=== PATIENT | male | born 1940 | race Two or more races ===

== ENCOUNTER 2017-02-04 12:51 | Outpatient (CLI) | payer MEDICARE, OTHER ==
[~2017-02-04] VITALS: Ht 162.6 cm; Wt 62.6 kg
[2017-02-04 13:08] VITALS: BP 136/78
[2017-02-04] MEDS ORDERED: CRESTOR10 M2 ORAL (13:38)
[2017-02-04] MEDS ORDERED: DIOVAN80 MG ORAL (13:38)
[2017-02-04] MEDS ORDERED: NORVASC5 MG ORAL (13:38)
--- NOTE | 2017-02-04 13:40 | GI Initial Consult Note ---
NancyHiwot Tonyoi N.PCarlos 02/04/17 1340: History of Present Illness General Date patient seen: Feb 04, 2017 Time patient seen: 13:36 Referring physician: JOSE Reason for Consultation: COLONOSCOPY SCREENING Present Illness HPI 76 year old male referred by Dr. Ch for routine colonoscopy screning. Last colonoscopy was performed in 2008. He presents today with c/o of GERD, constipation and abdominal bloating with some associated belching. Denies any changes in dietary habits. No noted significant weight loss. Home Meds Reported Medications Rosuvastatin Calcium* (CRESTOR*) Unknown Strength Tablet, ORAL DAILY, TAB 02/04/17 Amlodipine Besylate (Norvasc) 5 Mg Tablet, 5 MG ORAL DAILY, TAB 02/04/17 Valsartan (DIOVAN) 80 Mg Tab, 80 MG ORAL, TAB 02/04/17 Med list reviewed/reconciled: Yes Allergies: Coded Allergies: No Known Allergies (Unverified , 02/04/17) Patient History History Provided By: Patient PMH Narrative HTN Cholesterol Lt. Cataracts Denies PSHx Social History: Reports: other - tea Review of Systems All Other Systems: negative except mentioned in HPI Physical Exam Vital Signs Date Time Temp Pulse Resp B/P Pulse Ox O2 Delivery O2 Flow Rate FiO2 02/04/17 13:08 97.9 52 16 136/78 100 Sp02 EP Interpretation: reviewed General Appearance: well appearing, no apparent distress, alert Head: normocephalic EENT: PERRL/EOMI, normal ENT inspection Neck: supple Respiratory: normal breath sounds, no respiratory distress Cardiovascular: normal rate, regular rhythm Gastrointestinal: normal inspection, non tender, soft Rectal: deferred Neurologic: normal inspection, alert, oriented x3, responsive Psychiatric: normal inspection, judgement/insight normal, memory normal Skin: normal inspection, normal color, no rash, warm/dry Lymphatic: normal inspection, no adenopathy GI: Plan Problems: (1) HTN (hypertension) (2) Elevated cholesterol (3) Cataract (4) Colonoscopy planned (5) GERD (gastroesophageal reflux disease) (6) Constipation (7) Bloating symptom Plan EGD/colonoscopy scheduled for 02/10/17. - CLD & prep instructions given and acknowledged by patient. Seen with Dr. Knox. Thank you for referring this patient. ERICA KNOX 02/04/17 1655: History of Present Illness Present Illness Home Meds Reported Medications Rosuvastatin Calcium* (CRESTOR*) Unknown Strength Tablet, ORAL DAILY, TAB 02/04/17 Amlodipine Besylate (Norvasc) 5 Mg Tablet, 5 MG ORAL DAILY, TAB 02/04/17 Valsartan (DIOVAN) 80 Mg Tab, 80 MG ORAL, TAB 02/04/17 Allergies: Coded Allergies: No Known Allergies (Unverified , 02/04/17) GI: Plan Plan The patient was seen and examined at bedside and all new and available data was reviewed in the patients chart. I agree with the above findings, impression and plan. (Patient seen earlier today. Signature stamp does not reflect patient encounter time.). -Hiwot Martin MD, N.P. Feb 04, 2017 13:40 ERICA KNOX Feb 04, 2017 16:55
== END 2017-02-04 13:40 | disposition home or self-care (01) ==
LOC: PAN 12:51
DX: E78.00 Pure hypercholesterolemia, unspecified (principal); I10 Essential (primary) hypertension; K21.9 Gastro-esophageal reflux disease without esophagitis; K59.00 Constipation, unspecified; H26.9 Unspecified cataract
CPT/HCPCS: 99201

== ENCOUNTER 2017-02-10 06:13 | Day surgery (SDC) | payer MEDICARE, OTHER ==
[~2017-02-10] VITALS: Ht 160 cm; Wt 59.9 kg
[2017-02-10] VITALS (8 sets, daily range): BP systolic 136–160; BP diastolic 81–103
--- NOTE | 2017-02-10 06:07 | Anethesia Preoperative Eval ---
Anesthesia Pre-op PMH/ROS General Date of Evaluation: Feb 10, 2017 Time of Evaluation: 06:05 Anesthesiologist: jania ASA Score: ASA 2 Mallampati Score Class I : Soft palate, uvula, fauces, pillars visible Class II: Soft palate, uvula, fauces visible Class III: Soft palate, base of uvula visible Class IV: Only hard plate visible Mallampati Classification: Class II Surgeon: laura Diagnosis: gerd, colon screening Surgical Procedure: egd/colonoscopy Anesthesia History: none Social History: smoking - nonsmoker Family History: no anesthesia problems Allergies: Coded Allergies: No Known Allergies (Unverified , 02/04/17) Medications: see eMAR Past Medical History Cardiovascular: Reports: HTN Gastrointestinal/Genitourinary: Reports: GERD Neurologic/Psychiatric: Reports: depression/anxiety Anesthesia Pre-op Phys. Exam Physician Exam Last Vital Signs Date Time Temp Pulse Resp B/P Pulse Ox O2 Delivery O2 Flow Rate FiO2 02/10/17 07:40 98.6 47 18 153/92 99 Room Air Constitutional: NAD Neurologic: CN 2-12 intact Cardiovascular: RRR Respiratory: CTA Gastrointestinal: S/NT/ND Airway Exam Mallampati Score: Class II MO: full Neck: supple TMD: 2fb ROM: full Teeth: intact Anesthesia Pre-op A/P Risk Assessment & Plan Assessment: asa2 Plan: mac Status Change Before Surgery: No Pre-Antibiotics Drug: LUPE Umana Feb 10, 2017 06:07
[~2017-02-10 06:13] MED LIST: CRESTOR10 M2 ORAL; DIOVAN80 MG ORAL; NORVASC5 MG ORAL
[2017-02-10] MEDS ORDERED: [UNRECOGNIZED DRUG - REMARK] ORAL (07:48)
[2017-02-10] MEDS ORDERED: NEXIUM40 MG ORAL (07:48)
[2017-02-10] MEDS ORDERED: OLANZAPINE5 MG ORAL (07:48)
[2017-02-10] MEDS ORDERED: TRAZODONE HCL150 MG ORAL (07:48)
[2017-02-10] MEDS ORDERED: CRESTOR10 M2 ORAL (07:49)
[2017-02-10] MEDS ORDERED: Propofol 10mg/ml 20ml IV ONE (07:50)
[2017-02-10] MEDS ORDERED: Lidocaine 1% MPF 10mg/ml 5ml ONE (07:50)
--- NOTE | 2017-02-10 08:20 | Pre-Procedure Note/Attestation ---
Pre-Procedure Note/Attestation Complete Prior to Procedure Planned Procedure: not applicable Procedure Narrative: egd/colonoscopy Indications for Procedure Pre-Operative Diagnosis: screening colon, GERD Attestation I attest that I discussed the nature of the procedure; its benefits; risks and complications; and alternatives (and the risks and benefits of such alternatives ), prior to the procedure, with the patient (or the patient's legal customer retention representative). I attest that, if there was a reasonable possibility of needing a blood transfusion, the patient (or the patient's legal customer retention representative) was given the [facility] standardized written summary, pursuant to the Mk Angelina Blood Safety Act ([place] Health and Safety Code # 1645, as amended). I attest that I re-evaluated the patient just prior to the surgery and that there has been no change in the patient's H&P, except as documented below: ERICA KNOX Feb 10, 2017 08:20
--- NOTE | 2017-02-10 08:21 | Short Stay Surgery H&P ---
History of Present Illness History of Present Illness Chief Complaint screening colon, GERD see recent consult note HPI Luke Conti is a 76 year old male who was admitted on for Gerd,Colon Screening Patient History Allergies: Coded Allergies: No Known Allergies (Unverified , 02/04/17) PAST MEDICAL HISTORY: Past Surgeries: Social History: Medication History Scheduled Amlodipine Besylate (Norvasc), 5 MG ORAL DAILY, (Reported) Esomeprazole Magnesium (Nexium), 40 MG ORAL DAILY, (Reported) Olanzapine (Olanzapine), 5 MG ORAL DAILY, (Reported) Rosuvastatin Calcium* (Crestor*), 10 MG ORAL DAILY, (Reported) Trazodone* (Trazodone*), 25 MG ORAL BEDTIME, (Reported) Valsartan (Diovan), 80 MG ORAL BID, (Reported) Miscellaneous Medications [no-spa], 40 MG ORAL, (Reported) Physical Exam Vital Signs Last Vital Signs Date Time Temp Pulse Resp B/P Pulse Ox O2 Delivery O2 Flow Rate FiO2 02/10/17 07:40 98.6 47 18 153/92 99 Room Air Plan Attestation Are the patient's medical conditions optimized for surgery? ERICA KNOX Feb 10, 2017 08:21
--- NOTE | 2017-02-10 08:38 | Immediate Post-Op Evaluation ---
Immediate Post-Op Evalulation Immediate Post-Op Evalulation Procedure: egd/colonoscopy Date of Evaluation: Feb 10, 2017 Time of Evaluation: 09:02 IV Fluids: 0.9ns Blood Products: none Estimated Blood Loss: negligible Blood Pressure Systolic: 156 Blood Pressure Diastolic: 87 Pulse Rate: 46 Respiratory Rate: 20 O2 Sat by Pulse Oximetry: 99 Temperature (Fahrenheit): 97.4 Pain Score (1-10): 0 Nausea: No Vomiting: No Complications none Patient Status: awake, reacts, patent Hydration Status: adequate Drug: LUPE Umana Feb 10, 2017 08:38
[2017-02-10] MEDS ORDERED: DiphenhydrAMINE 50mg/ml Inj IVP PRN (08:45)
[2017-02-10] MEDS ORDERED: Atropine Inj 1mg/10ml Syr IV PRN (08:45)
[2017-02-10] MEDS ORDERED: Hydromorphone 0.5mg/0.5ml inj IVP PRN (08:45)
[2017-02-10] MEDS ORDERED: Midazolam 2mg/2ml Inj IVP PRN (08:45)
--- NOTE | 2017-02-10 08:48 | Endoscopy Procedure Note ---
Endoscopy Procedure Note Indication for Procedure: gerd, screening colon Procedures Performed: EGD, colonoscopy Operative Findings/Diagnosis: gastritis, hemorrhoids Specimen: yes Pt Tolerated Procedure Well: Yes Estimated Blood Loss: none Anesthesiologist: eduardo calhoun Anesthesia: MAC Implant(s) used?: No 50 yrs or older w/o bx or poly: Yes 10yrs. F/U not recommended: Yes If not recommended, why?: Above average risk 10 yrs. F/U needed: Yes 18 years or older w/prev. colo: Yes <3yrs. since last colonoscopy: No ERICA KNOX Feb 10, 2017 08:48
--- NOTE | 2017-02-10 10:02 | Procedure Note ---
DATE OF PROCEDURE: 02/10/2017 SURGEON: Adam Shukla M.D. PROCEDURE: Upper endoscopy with biopsy and colonoscopy. ANESTHESIOLOGIST: Lydia Reyes M.D. INSTRUMENT: Olympus adult flexible upper endoscope and colonoscope. INDICATION: Screening colonoscopy evaluation, chronic acid reflux, and chronic GERD. REASON FOR PROCEDURE: The procedure, risks, benefits, and possible consequences, including hemorrhage, aspiration, perforation and infection, and alternative treatments, were explained to the patient/legal guardian by Dr. Adam Shukla and the patient/legal guardian understood and accepted these risks. DESCRIPTION OF PROCEDURE: After informed consent was obtained and the patient was adequately sedated, Olympus upper endoscope was advanced from mouth and second portion of the duodenum and retroflexion was performed of the stomach. The patient has evidence of mild to moderate antral gastritis. Biopsy from antrum was obtained to rule out H. pylori infection. Otherwise, the rest of the upper endoscopic examination was grossly within normal limits. At this time, the upper endoscope was retrieved and the patient was turned over for colonoscopy. First, a rectal exam was performed, which shows normal. Then, the scope was advanced from rectum into the cecum, the appendiceal orifice, ileocecal valve, and upper quadrant palpation. Quality of prep was very good. The patient has normal colonoscopy examination. No any other mass, polyp, diverticula, or any pathology. Retroflexion of rectum showed evidence of internal hemorrhoids. The patient tolerated the procedure without any complications. SUMMARY OF FINDINGS: 1. Gastritis, status post biopsy. 2. Internal hemorrhoids, otherwise normal colonoscopy examination. RECOMMENDATIONS: 1. Follow up biopsy results and treat accordingly. The patient has not had a colonoscopy last 3 years. 2. Colonoscopy would be roughly about 10 years. Adam Shukla M.D. DR: ADALGISA JOB#: [id number] CC:
--- NOTE | 2017-02-10 10:22 | 48 Hour Post Anesthesia Eval ---
Post Anesthesia Evaluation Procedure: egd/colonoscopy Date of Evaluation: Feb 10, 2017 Time of Evaluation: 10:18 Blood Pressure Systolic: 156 0: 87 Pulse Rate: 46 Respiratory Rate: 20 Temperature (Fahrenheit): 97.4 O2 Sat by Pulse Oximetry: 99 Airway: patent Nausea: No Vomiting: No Pain Intensity: 0 Hydration Status: adequate Cardiopulmonary Status: stable Mental Status/LOC: patient returned to baseline Post-Anesthesia Complications: none Follow-up care needed: N/A LUPE LORENZO Feb 10, 2017 10:22
== END 2017-02-10 14:05 | disposition home or self-care (01) ==
LOC: GAS 06:13
DX: Z12.11 Encounter for screening for malignant neoplasm of colon (principal); K64.8 Other hemorrhoids; K21.9 Gastro-esophageal reflux disease without esophagitis; K29.50 Unspecified chronic gastritis without bleeding; I10 Essential (primary) hypertension; F32.9 Major depressive disorder, single episode, unspecified; F41.9 Anxiety disorder, unspecified; Z79.899 Other long term (current) drug therapy
CPT/HCPCS: 43239; 93005; G0121; J2704; 94003; 94150